=== PATIENT | female | born 1960 | race Caucasian/White ===

== ENCOUNTER → 2017-03-13 | Outpatient (CLI) | payer BC ==
[2012-10-07 18:30] VITALS: BP 124/75
[~2017-03-13] MED LIST: ABILIFY 10MG TA10 MG PO; CRESTOR 10MG10 MG PO; ZOLOFT50 MG PO
== END ==
LOC: CANPRECLI → RAD 08:51
CPT/HCPCS: G0202

== ENCOUNTER → 2017-04-22 | Outpatient (CLI) | payer BC ==
[2012-10-07 18:30] VITALS: BP 124/75
== END ==
LOC: MAMMO 15:52
DX: Z12.31 Encounter for screening mammogram for malignant neoplasm of breast (principal)
CPT/HCPCS: G0202

== ENCOUNTER → 2018-05-20 | Outpatient (CLI) | payer BC ==
[2012-10-07 18:30] VITALS: BP 124/75
== END ==
LOC: MAMMO 05-19 16:00
DX: Z12.31 Encounter for screening mammogram for malignant neoplasm of breast (principal)

== ENCOUNTER → 2019-01-11 | Day surgery (SDC) | payer BC ==
[2012-10-07 18:30] VITALS: BP 124/75
== END ==
LOC: MSO 08:43
DX: Z12.11 Encounter for screening for malignant neoplasm of colon (principal)
CPT/HCPCS: 00812; J2704; J3010; J7120

== ENCOUNTER → 2019-06-22 | Outpatient (CLI) | payer BC ==
[2012-10-07 18:30] VITALS: BP 124/75
== END ==
LOC: MAMMO 15:35
DX: Z12.31 Encounter for screening mammogram for malignant neoplasm of breast (principal)

== ENCOUNTER → 2020-07-18 | Outpatient (CLI) | payer BC ==
[2012-10-07 18:30] VITALS: BP 124/75
== END ==
LOC: MAMMO 15:37
DX: Z12.31 Encounter for screening mammogram for malignant neoplasm of breast (principal)

== ENCOUNTER → 2023-08-19 | Outpatient (CLI) | payer BC, MEDICARE | LOC: MAMMO 15:31 | DX: Z12.31 Encounter for screening mammogram for malignant neoplasm of breast (principal) ==

== ENCOUNTER → 2023-09-16 | Outpatient (CLI) | payer MEDICARE, BC | LOC: MAMMO 16:00 → RAD 16:06 → MAMMO 16:06 | DX: Z13.820 Encounter for screening for osteoporosis (principal); M81.0 Age-related osteoporosis without current pathological fracture ==

== ENCOUNTER → 2024-08-23 | Outpatient (CLI) | payer MEDICARE, BC | LOC: MAMMO 15:30 | DX: Z12.31 Encounter for screening mammogram for malignant neoplasm of breast (principal) ==